=== PATIENT | female | born 1995 | race American Indian/Alaskan Native ===

== ENCOUNTER 2019-03-21 10:40 | Emergency (ER) | payer SELFPAY ==
[2019-03-21 10:50] VITALS: BP 105/71
[2019-03-21 13:04] LABS: HCG Qualitative,Urine Negative (Negative)
[2019-03-21 13:10] LABS: Bacteria,Urine 1+ /HPF (Negative); Bilirubin,Urine NEG (Negative); Blood,Urine NEG (Negative); Color,Urine Yellow (Yellow); Mucus,Urine 3+ /HPF
--- NOTE | 2019-03-21 13:18 | Emergency Department Report ---
Chief Complaint: Urogenital-Female Stated Complaint: VAG BACTERIAL/POSSIBLE UTI Time Seen by Provider: 03/21/19 12:27 - HPI History of Present Illness: 24-year-old -[place] female presents to the emergency room and pain of vaginal irritation for the last 4 days. Patient denies any abdominal pain at this time. Patient states that his pain after and with intercourse and pain with urination. Patient reports there is vaginal discharge is trivedi with an odor and thick. Patient denies any nausea vomiting diarrhea or fever. - Exam Vital Signs: Vital Signs 03/21/19 10:47 Temperature 98.2 F Pulse Rate 70 Respiratory 20 Rate Blood Pressure 105/71 O2 Sat by Pulse 97 Oximetry MSE screening note: Focused history and physical exam performed. Due to findings the following was ordered: ED Medical Decision Making - Medical Decision Making 24-year-old -[place] female presents to the emergency room and pain of vaginal irritation for the last 4 days. Patient denies any abdominal pain at this time. Patient states that his pain after and with intercourse and pain with urination. Patient reports there is vaginal discharge is trivedi with an odor and thick. Patient denies any nausea vomiting diarrhea or fever. She has a negative urinalysis negative test. Patient can follow up at the health department or [facility] for further testing. ED Disposition for MSE Disposition: Z-07 MED SCREENING EXAM-LEFT Is pt being admited?: No Does the pt Need Aspirin: No Condition: Stable Referrals: PRIMARY CARE, [Primary Care Provider] - 3-5 Days
== END 2019-03-21 13:40 | disposition left against medical advice (07) ==
LOC: ED 10:40
DX: R10.2 Pelvic and perineal pain (principal); N89.8 Other specified noninflammatory disorders of vagina
CPT/HCPCS: 81001; 81025